=== PATIENT | male | born 1985 | race Caucasian/White ===

== ENCOUNTER 2019-09-03 00:32 | Outpatient (CLI) | payer BC, SELFPAY ==
[2019-09-03 17:56] LABS: SARS-CoV-2 RNA PCR Negative
== END 2019-09-03 00:33 | disposition home or self-care (01) ==
LOC: ANHCOVIDDT 00:33
PROVIDERS: Anesthesiology; PCP Family Medicine; Visit Provider Otolaryngology
DX: Z01.812 Encounter for preprocedural laboratory examination (principal); Z11.59 Encounter for screening for other viral diseases
CPT/HCPCS: 87635; C9803; U0003

== ENCOUNTER 2019-09-05 02:45 | Day surgery (SDC) | payer BC, SELFPAY ==
[2019-08-22 14:55] VITALS: BMI 31.9
--- NOTE | 2019-09-03 10:45 | PM.HPGS ---
History of Present Illness History of Present Illness Consent: Risks, benefits, and alternatives have been discussed and questions answered. Patient agrees to proceed with procedure. Chief complaint: hypertrophic tonsils Narrative: Scotty Cantor is a 34 year old maleWith recurring episodes of tonsillitis treated with various courses of antibiotics admitted for elective tonsillectomy Review of Systems Review of Systems: All systems reviewed & are unremarkable except as noted in HPI and below PMFSH Social History Social History Smoking packs per day: 0 Smoking cigarettes per day: 0.0 Years smoked: 6 Smoking pack-years: 0.00 Tobacco type: e-cigarettes/vaping Second hand tobacco smoke exposure: No Alcohol intake: current Drinks per week: 6 Substance use: never Gender identity (if verbalized by the patient): Male Spiritual care concerns: No Meds Home Medications and Allergies Home Medications Medication Instructions Recorded Confirmed Type No Home Medications 08/22/19 08/22/19 History Allergies Allergy/AdvReac Type Severity Reaction Status Date / Time No Known Allergies Allergy Unverified 08/21/19 08:08 Assessment and Plan Additional Plan plan tonsillectomy
--- NOTE | 2019-09-04 08:16 | WPDANESEPPF ---
Anes - Initial Pre Proc Eval Procedure: Operation Date: 09/05/19 09:00 Proposed Procedures p Tonsillectomy - Bam Baer MD Date/Time: 09/04/19 08:16 Surgeon: Bam Baer MD Pre Op Diagnosis: hypertrophic tonsils Patient Data Age: 34 Gender: M Height: 1.73 m Weight: 95.3 kg Allergies Allergy/AdvReac Type Severity Reaction Status Date / Time No Known Allergies Allergy Unverified 08/21/19 08:08 Home Medications Medication Instructions Recorded Confirmed Type No Home Medications 08/22/19 08/22/19 History Patient hx anesthesia problems: none Family hx anesthesia problems: none REPLACED BY [facility] Past Medical History Medical History (Updated 09/04/19 @ 08:15 by Bishop Dyer DO) FLEX (obstructive sleep apnea) Social History Social History Smoking packs per day: 0 Smoking cigarettes per day: 0.0 Years smoked: 6 Smoking pack-years: 0.00 Tobacco type: e-cigarettes/vaping Second hand tobacco smoke exposure: No Alcohol intake: current Drinks per week: 6 Substance use: never Living arrangements: alone Gender identity (if verbalized by the patient): Male Spiritual care concerns: No Anes - Eval Final PreProcedure Day of Procedure 09/04/19 08:16 Patient weight: obese Heart: regular rate and rhythm Lungs: clear to auscultation and normal air movement Airway: Mallampati scale class II Neurological: alert and oriented Last oral intake: >/= 8 hours ASA classification: III Emergent: no Anesthetic plan: proceed Anesthesia type and monitoring: general ETT and standard monitoring Informed Consent: The patient's anesthetic plan and its attendant risks and benefits were discussed with the patient/family/POA. Questions were solicited and answers provided to the satisfaction of the patient/family/POA.
[2019-09-05] VITALS (8 sets, daily range): BP systolic 106–141; BP diastolic 62–92; PULSE 84–91; RESP 14–20; TEMP 36.3; O2SAT 95–100
--- NOTE | 2019-09-05 06:11 | WPDHPUPDATE1 ---
History and Physical Update Update Date/Time: 09/05/19 06:11 History and Physical has been reviewed, including an updated exam of the patient. There are NO changes in the patient's condition. Risks, benefits, and alternatives have been discussed and questions answered. Patient agrees to proceed with procedure.
[2019-09-05] MEDS: ACETAMINOPHEN 500 MG TABLET 1000 MG PO (07:56)
[2019-09-05] MEDS: LACTATED RINGERS 1,000 ML 30 ML IV CONT (08:03)
--- NOTE | 2019-09-05 09:30 | PM.PROC ---
Procedure Note - Detailed Date of procedure: 09/05/19 Pre-op diagnosis: hypertrophic tonsils Post-op diagnosis: same Procedure performed: Tonsillectomy Description of procedure: Patient was prepped and draped in usual fashion after induction of anesthesia. The McIvor mouth gag was inserted. The tonsils were removed dissection technique hemostasis was obtained electrocautery. The mouth was inspected for bleeding. When stablized patient was awaken and brought to the recovery room in good condition. Anesthesia: GLMA Surgeon: Bam Baer MD Estimated blood loss (mL): 15 Drains: No Packing: No Pathology: none sent Complications: No immediate complications Condition: stable Disposition: PACU
--- NOTE | 2019-09-05 15:17 | SUR.PHASEII ---
1020; PT INTO [facility] PER STRETCHER. AWAKE AND ALERT. STATES MILD SORE THROAT AT 5/10. UP TO RECLINER. GAIT STEADY. PT GIVEN WATER. 1030; RN INTO ROOM TO CHECK ON PT. PT IS FULLY DRESSED. IV INTACT. PT DRINKING WATER AND PACING. STATES HE IS READY TO GO HOME. PAIN 5/10. ASKED PT TO SIT IN RECLINER. PT COMPLIED. 1050; PT READY TO GO HOME. WILL GIVEN OXYCODONE PO. MEETS DISCHARGE CRITERIA.
== END 2019-09-05 11:05 | disposition home or self-care (01) ==
PROVIDERS: PCP Family Medicine; Visit Provider Otolaryngology
PROC: (CPT 42826; principal; 2019-09-05 09:00)
DX: J35.01 Chronic tonsillitis (principal); G47.33 Obstructive sleep apnea (adult) (pediatric); E66.9 Obesity, unspecified; Z68.33 Body mass index [BMI] 33.0-33.9, adult; F17.290 Nicotine dependence, other tobacco product, uncomplicated
CPT/HCPCS: 42826; 88302; 88304; A9270; J0330; J1100; J2250; J2405; J2704; J3010; J7120